=== PATIENT | female | born 1990 | race Caucasian/White ===

== ENCOUNTER → 2016-10-24 | Outpatient (CLI) | payer BC ==
[2016-10-24 13:51] LABS: CH 31.7; HCT 40.1 % (34.0-46.0); HDW 2.07; HGB 12.8 gm/dL (11.4-16.0); MCH 30.7 pg (25.0-35.0); MCHC 31.9 g/dL (31.0-37.0); MCV 96.4 fL (80.0-100.0); Mean Platelet Volume 7.5; RBC 4.16 m/uL (3.80-5.40); RDW 12.9 % (11.5-15.5); WBC 5.9 k/uL (3.8-10.6)
[2016-10-24 14:05] LABS: ALT 33 U/L (9-52); AST 22 U/L (14-36); Alkaline Phosphatase 56 U/L (38-126); Anion Gap 9 mmol/L; Blood Urea Nitrogen 12 mg/dL (7-17); Calcium 9.8 mg/dL (8.4-10.2); Carbon Dioxide 25 mmol/L (22-30); Chloride 103 mmol/L (98-107); Cholesterol 190 mg/dL (<200); Glucose 80 mg/dL (74-99); HDL Cholesterol 103 mg/dL (40-60); Magnesium 1.8 mg/dL (1.6-2.3); Non-African American GFR(MDRD) >60 (>60 ml/min/1.73 sqM); Potassium 4.3 mmol/L (3.5-5.1); Sodium 137 mmol/L (137-145); Total Bilirubin 0.6 mg/dL (0.2-1.3); Total Protein 6.7 g/dL (6.3-8.2)
[2016-10-24 14:22] LABS: Follicle Stimulating Hormone 2.3 mIU/mL
[2016-10-24 14:37] LABS: Estradiol 133 pg/mL
[2016-10-24 15:10] LABS: Vitamin B12 652 pg/mL (239-931)
[2016-10-25 03:23] LABS: EBV - EA (IgG) <5.0 U/mL (<9.0)
== END | disposition home or self-care (01) ==
LOC: LABWHC1 13:00
PROVIDERS: ATTEND Internal Medicine
DX: R53.82 Chronic fatigue, unspecified (principal)
CPT/HCPCS: 36415; 80053; 80061; 82306; 82607; 82670; 82746; 83001; 83002; 83735; 84439; 84443; 84630; 85027; 86663; 86664; 86665

== ENCOUNTER → 2017-03-20 | Outpatient (CLI) | payer BC ==
--- NOTE | 2017-03-20 13:03 | USB ---
Reason for exam: clinical finding. Physical Findings: Nurse Summary:left breast pain, redness, sore (nurse kp). US Breast LT Left breast ultrasound includes all four quadrants, the retroareolar region and axilla. Finding demonstrates a 1.6 x 0.8 x 1.2cm lobular, hypoechoic lesion at 3 o'clock. These results were verbally communicated with the patient and result sheet given to the patient on 03/20/17. ASSESSMENT: Probably benign, BI-RAD 3 RECOMMENDATION: Ultrasound of the left breast in 4-6 weeks time. (1-2 months) Suspect phlegmon/infection as patient recently started antibiotic if lesion does not resolve, further investigated with biopsy would be advised. MTDD
== END | disposition home or self-care (01) ==
LOC: RADUSWWP 10:57
PROVIDERS: ATTEND Family Medicine
DX: N61.0 Mastitis without abscess (principal)

== ENCOUNTER → 2017-04-10 | Outpatient (CLI) | payer BC ==
--- NOTE | 2017-04-10 10:11 | USB ---
Reason for exam: clinical finding. Indicated problem(s): palpable abnormality and lump or thickening in the left breast. Physical Findings: Nurse Summary: A 1cm movable nodule at 2-3 o'clock (nurse dw). US Breast LT Left breast ultrasound includes all four quadrants, the retroareolar region and axilla. Finding demonstrates a 0.7 x 0.7 x 0.3cm irregular, mixed lesion with calcification at 2 o'clock, improved from 03/25/17, and a 0.2 x 0.3 x 0.2cm oval, cystic lesion at 2 o'clock. These results were verbally communicated with the patient and result sheet given to the patient on 04/10/17. ASSESSMENT: Probably benign, BI-RAD 3 RECOMMENDATION: Ultrasound of the left breast in 1 month. (1-2 months).
== END | disposition home or self-care (01) ==
LOC: RADUSWWP 08:23
PROVIDERS: ATTEND Family Medicine
DX: N61.0 Mastitis without abscess (principal)

== ENCOUNTER 2018-07-24 18:18 | Emergency (ER) | payer BC, OTHER ==
[2018-07-24 18:27] VITALS: BP 119/81; PULSE 99; RESP 20; TEMP 98.2
[2018-07-24] MEDS ORDERED: DIPH,PERTUS(ACELL)TETVAC-LF 0.5 ML VIAL IM ONE (18:33)
[2018-07-24] MEDS ORDERED: PROPARACAINE 0.5% OPHTH DROPS 15 ML BTL BOTH EYES STA (18:33)
[2018-07-24] MEDS ORDERED: ERYTHROMYCIN 5 MG/GM OPHTH OINT 3.5 GM TUBE LEFT EYE STA (19:06)
--- NOTE | 2018-07-24 19:09 | ED ---
General Adult HPI - General Chief complaint: Eye Problems Stated complaint: [facility]-Eye Pain Time Seen by Provider: 07/24/18 18:33 Source: patient, RN notes reviewed Mode of arrival: ambulatory Limitations: no limitations - History of Present Illness Initial comments: 27-year-old female presents to the emergency department for a chief complaint of left eye pain. Patient states that approximately 4 hours ago she was blowing up a balloon when it popped and hit her in the left eye. Patient states the pain is since improved her work wanted her to be evaluated. States that it is making her nose running she feels like she scratched it or has something in it. 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 States her vision is pretty much at baseline at this time. Denies pain with movement of the left eye. Patient has no other complaints at this time including shortness of breath, chest pain, abdominal pain, nausea or vomiting, headache, or visual changes. - Related Data Home Medications Medication Instructions Recorded Confirmed No Known Home Medications 03/12/15 03/12/15 Allergies Allergy/AdvReac Type Severity Reaction Status Date / Time No Known Allergies Allergy Verified 07/24/18 18:27 Review of Systems ROS Statement: Those systems with pertinent positive or pertinent negative responses have been documented in the HPI. ROS Other: All systems not noted in ROS Statement are negative. Past Medical History Past Medical History: Fibromyalgia History of Any Multi-Drug Resistant Organisms: None Reported Past Surgical History: No Surgical Hx Reported Past Psychological History: No Psychological Hx Reported Smoking Status: Never smoker Past Alcohol Use History: None Reported Past Drug Use History: None Reported General Exam Limitations: no limitations General appearance: alert, in no apparent distress Head exam: Present: atraumatic, normocephalic, normal inspection Eye exam: Present: PERRL, EOMI, conjunctival injection (Minimal conjunctival injection noted of the left cornea), periorbital swelling (Minimal left-sided periorbital edema of the upper eyelid), other (Eye was stained with fluorescein stain, corneal abrasion evident at about 9:00. This is about 2 mm in length. Negative Jaimie sign.). Absent: scleral icterus ENT exam: Present: normal exam, normal oropharynx, mucous membranes moist, TM's normal bilaterally, normal external ear exam Neck exam: Present: normal inspection, full ROM. Absent: tenderness, meningismus, lymphadenopathy Respiratory exam: Present: normal lung sounds bilaterally. Absent: respiratory distress, wheezes, rales, rhonchi, stridor Cardiovascular Exam: Present: regular rate, normal rhythm, normal heart sounds. Absent: systolic murmur, diastolic murmur, rubs, gallop, clicks Neurological exam: Present: alert, oriented X3, CN II-XII intact Psychiatric exam: Present: normal affect, normal mood Course Vital Signs 07/24/18 18:23 Temperature 98.2 F Pulse Rate 99 Respiratory 20 Rate Blood Pressure 119/81 O2 Sat by Pulse 96 Oximetry Medical Decision Making - Medical Decision Making 27-year-old [place] female presents for left eye pain after blowing up a balloon and popping in her left eye. Patient has minimal periorbital edema of the left upper eyelid with minimal conjunctival erythema. The eye was numbed with proparacaine which completely resolved symptoms. The eye was then stained with fluorescein stain and because with the Wood's lamp. There is a small corneal abrasion noted. Negative Jaimie sign. Both eyelids were flipped, no evidence for foreign bodies. Patient states pain is actually improving since it happened her work wanted her to be evaluated. Patient's vision is at baseline, states she always has poor vision of the left eye due to amblyopia as a child that was uncorrected. Patient will be treated with tetanus shot, erythromycin ointment. Will follow up with primary care. He will return here if she has any worsening symptoms. Disposition Clinical Impression: Corneal abrasion, left Disposition: HOME SELF-CARE Condition: Good Instructions (If sedation given, give patient instructions): Corneal Abrasion (ED) Additional Instructions: Apply antibiotic ointment to left eye 4 times a day for 7 days. Follow-up with primary care in 1-2 days. If anything is worsening return here to the emergency department. Is patient prescribed a controlled substance at d/c from ED?: No Referrals: Andry Garcia MD [Primary Care Provider] - 1-2 days Time of Disposition: 19:08
== END 2018-07-24 19:27 | disposition home or self-care (01) ==
LOC: EC 18:18
DX: S05.02XA Injury of conjunctiva and corneal abrasion without foreign body, left eye, initial encounter (principal); Z23 Encounter for immunization; W22.8XXA Striking against or struck by other objects, initial encounter; Y92.69 Other specified industrial and construction area as the place of occurrence of the external cause; Y99.0 Civilian activity done for income or pay
CPT/HCPCS: 90471; 90715; 99283

== ENCOUNTER 2019-04-12 16:20 | Emergency (ER) | payer BC, OTHER ==
[2019-04-12 16:23] VITALS: TEMP 98.2
[2019-04-12] MEDS ORDERED: SODIUM CHLORIDE 0.9% 1,000 ML IV STA (16:52)
[2019-04-12] MEDS ORDERED: PANTOPRAZOLE 40 MG/10 ML VIAL IVP STA (16:52)
--- NOTE | 2019-04-12 16:56 | ED ---
Abdominal Pain HPI - General Source: patient, RN notes reviewed Mode of arrival: ambulatory Limitations: no limitations <Reji Allison - Last Filed: 04/12/19 16:53> <Mackenzie Ospina - Last Filed: 04/12/19 23:24> - General Chief Complaint: Abdominal Pain Stated Complaint: Abd pain Time Seen by Provider: 04/12/19 16:48 - History of Present Illness Initial Comments: This is a 28-year-old female presents emergency Department chief complaint of abdominal discomfort, generalized does not feel well. She states on she had a mild headache states that she came home took some Tylenol but did not feel well and went to bed. Patient woke up with abdominal pain on Saturday into Saturday. She did have an episode of vomiting throughout the night she was seen at urgent care and was diagnosed with possible UTI. She states that they ran urinalysis and told her that though placed on antibiotics until urine culture came back. Patient states she has some pain epigastric region which is nonradiating. She states she's been able to eat does not change her pain. Patient states that she has a history of anxiety and fibromyalgia no prior abdominal surgeries. She denies any significant constipation, diarrhea, dysuria or hematuria she states that she's had some chills with no reported fever. Patient has no complaints of chest pain or shortness of breath. (Reji Allison) - Related Data Previous Rx's Medication Instructions Recorded Cephalexin [Keflex] 500 mg PO Q12HR 5 Days #10 cap 04/12/19 Famotidine [Pepcid] 20 mg PO DAILY 5 Days #5 tablet 04/12/19 Allergies Allergy/AdvReac Type Severity Reaction Status Date / Time No Known Allergies Allergy Verified 04/12/19 16:23 Review of Systems ROS Other: All systems not noted in ROS Statement are negative. <Reji Allison - Last Filed: 04/12/19 16:53> ROS Other: All systems not noted in ROS Statement are negative. <Mackenzie Ospina - Last Filed: 04/12/19 23:24> ROS Statement: Those systems with pertinent positive or pertinent negative responses have been documented in the HPI. Past Medical History Past Medical History: Fibromyalgia History of Any Multi-Drug Resistant Organisms: None Reported Past Surgical History: No Surgical Hx Reported Past Psychological History: No Psychological Hx Reported Smoking Status: Never smoker Past Alcohol Use History: None Reported Past Drug Use History: None Reported <Reji Allison M - Last Filed: 04/12/19 16:53> General Exam Limitations: no limitations General appearance: alert, in no apparent distress Head exam: Present: atraumatic, normocephalic, normal inspection Eye exam: Present: normal appearance, PERRL, EOMI. Absent: scleral icterus, conjunctival injection, periorbital swelling ENT exam: Present: normal exam, normal oropharynx, mucous membranes moist, TM's normal bilaterally Neck exam: Present: normal inspection, full ROM. Absent: tenderness, meningismus, lymphadenopathy Respiratory exam: Present: normal lung sounds bilaterally. Absent: respiratory distress, wheezes, rales, rhonchi, stridor Cardiovascular Exam: Present: regular rate, normal rhythm, normal heart sounds. Absent: systolic murmur, diastolic murmur, rubs, gallop, clicks GI/Abdominal exam: Present: soft, tenderness (Mild epigastric), normal bowel sounds. Absent: distended, guarding, rebound, rigid Back exam: Absent: CVA tenderness (R), CVA tenderness (L) <Reji Allison M - Last Filed: 04/12/19 16:53> <Mackenzie Ospina L - Last Filed: 04/12/19 23:24> - General Exam Comments Initial Comments: General: The patient is awake and alert, in no distress, and does not appear acutely ill. Eye: +3 mm pupils are equal, round and reactive to light, extra-ocular movements are intact. No nystagmus. There is normal conjunctiva bilaterally. No signs of icterus. Ears, nose, mouth and throat: There are moist mucous membranes and no oral lesions. Neck: The neck is supple, there is no tenderness or JVD. Cardiovascular: There is a regular rate and rhythm. No murmur, rub or gallop is appreciated. Respiratory: Lungs are clear to auscultation, respirations are non-labored, breath sounds are equal. No wheezes, stridor, rales, or rhonchi. Gastrointestinal: Soft, non-distended, very mild epigastric pain to deep palpation fo the region remaining abdomen nontender and without masses or organomegaly noted. NO RUQ pain, (-) murphys sign. There is no rebound or guarding present. No CVA tenderness. Bowel sounds are unremarkable. Musculoskeletal: Normal ROM, no tenderness. Strength 5/5. Sensation intact. radial pulses equal bilaterally 2+. Neurological: A&O x 3. CN II-XII intact grossly, There are no obvious motor or sensory deficits. Coordination appears grossly intact. Speech is normal. Skin: Skin is warm and dry and no rashes or lesions are noted. Psychiatric: Cooperative, appropriate mood & affect, normal judgment. (Mackenzie Ospina) Course Vital Signs 04/12/19 04/12/19 16:20 18:32 Temperature 98.2 F Pulse Rate 80 68 Respiratory 18 16 Rate Blood Pressure 110/77 117/73 O2 Sat by Pulse 98 98 Oximetry Medical Decision Making - Lab Data Result diagrams: 04/12/19 17:23 04/12/19 17:23 <Mackenzie Ospina - Last Filed: 04/12/19 23:24> - Medical Decision Making 28-year-old female presenting today for chief complaint of epigastric pain that episode of vomiting. Patient states that this has been resolving however she still feels fatigued. Patient does have lower abdominal pain denies . Laboratory studies unremarkable. Lipase within normal limits no leukocytosis transaminitis. Patient appears well signs acute distress she is laughing and giggling in room. Patient was provided Protonix by provider Reji Allison prior to sign out. Patient states this gave minor relief. Patient is a habitual NSAID user and I discussed the rest of peptic ulcer. Patient denies any melanotic stools patient's hemoglobin is stable she is not on" therapy at this time feel she is stable for discharge with Pepcid and GI follow-up. Return parameters and laboratory studies were discussed with patient verbalized understanding patient is discharged. Well aware of the importance of follow-up. Discussed case with Dr. Freitas. (Mackenzie Ospina) - Lab Data Lab Results 04/12/19 04/12/19 04/12/19 Range/Units 17:23 17:23 17:23 WBC 3.7 L (3.8-10.6) k/uL RBC 4.15 (3.80-5.40) m/uL Hgb 12.5 (11.4-16.0) gm/dL Hct 38.6 (34.0-46.0) % MCV 93.2 (80.0-100.0) fL MCH 30.2 (25.0-35.0) pg MCHC 32.4 (31.0-37.0) g/dL RDW 12.1 (11.5-15.5) % Plt Count 196 (150-450) k/uL Neutrophils % 56 % Lymphocytes % 27 % Monocytes % 8 % Eosinophils % 4 % Basophils % 2 % Neutrophils # 2.1 (1.3-7.7) k/uL Lymphocytes # 1.0 (1.0-4.8) k/uL Monocytes # 0.3 (0-1.0) k/uL Eosinophils # 0.2 (0-0.7) k/uL Basophils # 0.1 (0-0.2) k/uL Sodium 138 (137-145) mmol/L Potassium 4.2 (3.5-5.1) mmol/L Chloride 106 (98-107) mmol/L Carbon Dioxide 26 (22-30) mmol/L Anion Gap 6 mmol/L BUN 10 (7-17) mg/dL Creatinine 0.67 (0.52-1.04) mg/dL Est GFR (CKD-EPI)AfAm >90 (>60 ml/min/1.73 sqM) Est GFR (CKD-EPI)NonAf >90 (>60 ml/min/1.73 sqM) Glucose 89 (74-99) mg/dL Calcium 8.7 (8.4-10.2) mg/dL Total Bilirubin 0.3 (0.2-1.3) mg/dL AST 22 (14-36) U/L ALT 14 (4-34) U/L Alkaline Phosphatase 58 (38-126) U/L Total Protein 6.5 (6.3-8.2) g/dL Albumin 4.0 (3.5-5.0) g/dL Amylase 36 (30-110) U/L Lipase 100 (23-300) U/L Urine Color Urine Appearance (Clear) Urine pH (5.0-8.0) Ur Specific [place] (1.001-1.035) Urine Protein (Negative) Urine Glucose (UA) (Negative) Urine Ketones (Negative) Urine Blood (Negative) Urine Nitrite (Negative) Urine Bilirubin (Negative) Urine Urobilinogen (<2.0) mg/dL Ur Leukocyte Esterase (Negative) Urine RBC (0-5) /hpf Urine WBC (0-5) /hpf Ur Squamous Epith Cells (0-4) /hpf Urine Bacteria (None) /hpf Urine HCG, Qual (Not Detectd) Heterophile Antibody Negative (Negative) 04/12/19 04/12/19 Range/Units 17:31 17:31 WBC (3.8-10.6) k/uL RBC (3.80-5.40) m/uL Hgb (11.4-16.0) gm/dL Hct (34.0-46.0) % MCV (80.0-100.0) fL MCH (25.0-35.0) pg MCHC (31.0-37.0) g/dL RDW (11.5-15.5) % Plt Count (150-450) k/uL Neutrophils % % Lymphocytes % % Monocytes % % Eosinophils % % Basophils % % Neutrophils # (1.3-7.7) k/uL Lymphocytes # (1.0-4.8) k/uL Monocytes # (0-1.0) k/uL Eosinophils # (0-0.7) k/uL Basophils # (0-0.2) k/uL Sodium (137-145) mmol/L Potassium (3.5-5.1) mmol/L Chloride (98-107) mmol/L Carbon Dioxide (22-30) mmol/L Anion Gap mmol/L BUN (7-17) mg/dL Creatinine (0.52-1.04) mg/dL Est GFR (CKD-EPI)AfAm (>60 ml/min/1.73 sqM) Est GFR (CKD-EPI)NonAf (>60 ml/min/1.73 sqM) Glucose (74-99) mg/dL Calcium (8.4-10.2) mg/dL Total Bilirubin (0.2-1.3) mg/dL AST (14-36) U/L ALT (4-34) U/L Alkaline Phosphatase (38-126) U/L Total Protein (6.3-8.2) g/dL Albumin (3.5-5.0) g/dL Amylase (30-110) U/L Lipase (23-300) U/L Urine Color Light Yellow Urine Appearance Clear (Clear) Urine pH 6.0 (5.0-8.0) Ur Specific [place] 1.006 (1.001-1.035) Urine Protein Negative (Negative) Urine Glucose (UA) Negative (Negative) Urine Ketones Negative (Negative) Urine Blood Trace H (Negative) Urine Nitrite Negative (Negative) Urine Bilirubin Negative (Negative) Urine Urobilinogen <2.0 (<2.0) mg/dL Ur Leukocyte Esterase Large H (Negative) Urine RBC 3 (0-5) /hpf Urine WBC 10 H (0-5) /hpf Ur Squamous Epith Cells 3 (0-4) /hpf Urine Bacteria Occasional H (None) /hpf Urine HCG, Qual Not Detected (Not Detectd) Heterophile Antibody (Negative) Disposition <Reji Allison - Last Filed: 04/12/19 16:53> Is patient prescribed a controlled substance at d/c from ED?: No Time of Disposition: 18:23 <Mackenzie Ospina - Last Filed: 04/12/19 23:24> Clinical Impression: UTI (urinary tract infection), Epigastric pain, Vomiting Disposition: HOME SELF-CARE Condition: Good Instructions (If sedation given, give patient instructions): Peptic Ulcer (ED), Acute Abdominal Pain (ED) Additional Instructions: Please use medication as discussed. Please follow-up with family doctor in the next 2 days, and GI as discussed. Please return to emergency room if the symptoms increase or worsen or for any other concerns. Prescriptions: Cephalexin [Keflex] 500 mg PO Q12HR 5 Days #10 cap Famotidine [Pepcid] 20 mg PO DAILY 5 Days #5 tablet Referrals: Andry Garcia MD [Primary Care Provider] - 1-2 days Corey Carballo MD [STAFF PHYSICIAN] - 1-2 days
[2019-04-12 17:32] LABS: Basophils # (A) 0.1 k/uL (0-0.2); Basophils % (A) 2 %; Eosinophils # (A) 0.2 k/uL (0-0.7); Eosinophils % (A) 4 %; HCT 38.6 % (34.0-46.0); HGB 12.5 gm/dL (11.4-16.0); Lymphocytes % (A) 27 %; MCH 30.2 pg (25.0-35.0); MCHC 32.4 g/dL (31.0-37.0); MCV 93.2 fL (80.0-100.0); Mean Platelet Volume 7.2; Monocytes # (A) 0.3 k/uL (0-1.0); Monocytes % (A) 8 %; Neutrophils # (A) 2.1 k/uL (1.3-7.7); Neutrophils % (A) 56 %; Platelet Count 196 k/uL (150-450); RBC 4.15 m/uL (3.80-5.40); RDW 12.1 % (11.5-15.5); WBC 3.7 k/uL (3.8-10.6)
[2019-04-12 17:47] LABS: ALT 14 U/L (4-34); AST 22 U/L (14-36); African American GFR (CKD) >90 (>60 ml/min/1.73 sqM); Alkaline Phosphatase 58 U/L (38-126); Amylase 36 U/L (30-110); Anion Gap 6 mmol/L; Blood Urea Nitrogen 10 mg/dL (7-17); Calcium 8.7 mg/dL (8.4-10.2); Carbon Dioxide 26 mmol/L (22-30); Chloride 106 mmol/L (98-107); Glucose 89 mg/dL (74-99); Non-African American GFR(CKD) >90 (>60 ml/min/1.73 sqM); Potassium 4.2 mmol/L (3.5-5.1); Sodium 138 mmol/L (137-145); Total Bilirubin 0.3 mg/dL (0.2-1.3); Total Protein 6.5 g/dL (6.3-8.2)
[2019-04-12 17:57] LABS: Appearance,Urine Clear (Clear); Bacteria,Urine Occasional /hpf; Bilirubin,Urine Negative (Negative); Blood,Urine Trace (Negative); Color,Urine Light Yellow; Glucose,Urine (UA) Negative (Negative); Ketones,Urine Negative (Negative); Leukocyte Esterase,Urine Large (Negative); Nitrite,Urine Negative (Negative); Protein,Urine Negative (Negative); RBC,Urine 3 /hpf (0-5); Specific Gravity,Urine 1.006 (1.001-1.035); Squamous Epithelial Cell,Urine 3 /hpf (0-4); Urobilinogen,Urine <2.0 mg/dL (<2.0); WBC,Urine 10 /hpf (0-5)
[2019-04-12] MEDS ORDERED: CEPHALEXIN 500MG STARTER PACK 4 CAP BTL PO STA (18:21)
[2019-04-12 18:40] VITALS: BP 117/73; PULSE 68; RESP 16
== END 2019-04-12 18:32 | disposition home or self-care (01) ==
LOC: EC 16:20
DX: N39.0 Urinary tract infection, site not specified (principal)
CPT/HCPCS: 36415; 80053; 82150; 83690; 85025; 86308; 81001; 81025; 99284; 96374; 96361; C9113

== ENCOUNTER → 2020-01-26 | Outpatient (CLI) | payer BC ==
[2020-01-26 16:30] LABS: Basophils % (A) 1 %; Eosinophils # (A) 0.1 k/uL (0-0.7); Eosinophils % (A) 2 %; HCT 39.8 % (34.0-46.0); HGB 13.1 gm/dL (11.4-16.0); Lymphocytes # (A) 1.5 k/uL (1.0-4.8); Lymphocytes % (A) 28 %; MCH 30.3 pg (25.0-35.0); Mean Platelet Volume 6.9; Monocytes # (A) 0.3 k/uL (0-1.0); Monocytes % (A) 6 %; Neutrophils # (A) 3.2 k/uL (1.3-7.7); Neutrophils % (A) 62 %; Platelet Count 173 k/uL (150-450); RBC 4.32 m/uL (3.80-5.40); RDW 12.4 % (11.5-15.5); WBC 5.2 k/uL (3.8-10.6)
[2020-01-27 01:39] LABS: Hemoglobin A1C 5.4 % (4.0-6.0)
[2020-01-27 03:05] LABS: T4, Free (Free Thyroxine) 0.9 ng/dL (0.80-1.80)
[2020-01-27 03:30] LABS: African American GFR (CKD) 100.1 (60.0-200.0); Albumin 4.7 g/dL (3.80-4.90); Albumin/Globulin Ratio 2.24 (1.60-3.17); BUN/Creat Ratio 14.44 Ratio (12.00-20.00); Calcium 9.7 mg/dL (8.7-10.3); Globulin 2.1 g/dL (1.6-3.3); Non-African American GFR(CKD) 86.4 (60.0-200.0); Potassium 4.2 mmol/L (3.5-5.5); Total Bilirubin 0.6 mg/dL (0.3-1.2); Total Protein 6.8 g/dL (6.2-8.2)
== END | disposition home or self-care (01) ==
LOC: LABWHC1 15:08
PROVIDERS: ATTEND Psychiatry & Neurology Psychiatry
DX: Z00.00 Encounter for general adult medical examination without abnormal findings (principal); F42.9 Obsessive-compulsive disorder, unspecified
CPT/HCPCS: 36415; 80053; 83036; 84439; 84443; 85025

== ENCOUNTER → 2020-01-27 | Outpatient (CLI) | payer BC ==
[2020-01-27 20:42] LABS: Chol/HDL Ratio 2.99; LDL Cholesterol,Calculated 146.6 mg/dL (0.0-131.0); VLDL Calculation 20.4 mg/dL (5.00-40.00)
== END | disposition home or self-care (01) ==
LOC: LABWHC1 11:12
PROVIDERS: ATTEND Family Medicine
DX: Z00.00 Encounter for general adult medical examination without abnormal findings (principal)
CPT/HCPCS: 36415; 80061

== ENCOUNTER 2020-04-22 15:01 | Emergency (ER) | payer BC, OTHER ==
[2020-04-22 15:05] VITALS: BP 143/88; PULSE 79; RESP 18; TEMP 98.1
[2020-04-22] MEDS ORDERED: SODIUM CHLORIDE 0.9% 1,000 ML IV STA (15:17)
--- NOTE | 2020-04-22 15:46 | ED ---
Abdominal Pain HPI - General Chief Complaint: Abdominal Pain Stated Complaint: Abd Pain Time Seen by Provider: 04/22/20 15:08 Source: patient Mode of arrival: ambulatory Limitations: no limitations - History of Present Illness Initial Comments: 29-year-old female presents emergency Department with chief complaint abdominal pain and constipation. Patient reports she is on multiple psychiatric medications. He states 2 months ago she was started on an antidepressant that causes constipation as a side effect. Patient reports she stopped taking the me dication after one month but now is starting to feel constipated. Patient reports she was switched to fluoxetine and is trying to gain weight but she believes this is secondary to not having bowel movements. Patient reports having 1 bowel movement weekly. Patient reports abdominal bloating and in digestion. Reports upper abdominal discomfort with occasional nausea but no vomiting or diarrhea. Denies any chest pain or shortness of breath. Denies any urinary or vaginal symptoms. she reports taking MiraLAX for 2 weeks with no significant improvement in symptoms. - Related Data Home Medications Medication Instructions Recorded Confirmed Acetaminophen Tab [Tylenol Tab] 1,000 mg PO Q6HR PRN 04/22/20 04/22/20 Blisovi 1 tab PO DAILY 04/22/20 04/22/20 Multivitamins, Thera [Multivitamin 1 tab PO DAILY 04/22/20 04/22/20 (formulary)] clonazePAM 0.5 mg PO TID 04/22/20 04/22/20 fluvoxaMINE MALEATE [Fluvoxamine 100 mg PO BID 04/22/20 04/22/20 Maleate] hydrOXYzine HCL [Atarax] 12.5 mg PO HS 04/22/20 04/22/20 Allergies Allergy/AdvReac Type Severity Reaction Status Date / Time No Known Allergies Allergy Verified 04/22/20 16:38 Review of Systems ROS Statement: Those systems with pertinent positive or pertinent negative responses have been documented in the HPI. ROS Other: All systems not noted in ROS Statement are negative. Past Medical History Past Medical History: Fibromyalgia History of Any Multi-Drug Resistant Organisms: None Reported Past Surgical History: No Surgical Hx Reported Past Psychological History: No Psychological Hx Reported Smoking Status: Never smoker Past Alcohol Use History: None Reported Past Drug Use History: None Reported General Exam Limitations: no limitations General appearance: alert, in no apparent distress Head exam: Present: atraumatic, normocephalic, normal inspection Eye exam: Present: normal appearance, PERRL, EOMI Pupils: Present: normal accommodation ENT exam: Present: normal exam, normal oropharynx, mucous membranes moist Neck exam: Present: normal inspection, full ROM. Absent: tenderness Respiratory exam: Present: normal lung sounds bilaterally. Absent: respiratory distress Cardiovascular Exam: Present: regular rate, normal rhythm, normal heart sounds GI/Abdominal exam: Present: soft, tenderness (mild upper abdominal tenderness). Absent: distended Extremities exam: Present: normal inspection, full ROM, normal capillary refill, other (palpable DP and PT bilaterally.). Absent: tenderness, pedal edema, joint swelling, calf tenderness Back exam: Present: normal inspection, full ROM. Absent: tenderness, CVA tenderness (R), CVA tenderness (L) Neurological exam: Present: alert, oriented X3, normal gait Psychiatric exam: Present: normal affect, normal mood Skin exam: Present: warm, dry, intact, normal color Course Vital Signs 04/22/20 15:02 Temperature 98.1 F Pulse Rate 79 Respiratory 18 Rate Blood Pressure 143/88 O2 Sat by Pulse 99 Oximetry Medical Decision Making - Medical Decision Making 29-year-old female presents to emergency Department with a chief complaint of abdominal pain and constipation. on physical examination, patient is resting comfortably in bed. She appears to have mild upper abdominal tenderness. Non specific.I did suspect a recent weight gain is related to a newSSRI she has been taking. This is a common side effect of no medication.CBC CMP and UA unremarkable. Patient is not . KUB reveals no signs of bowel obstruction or possible ileus. Overall nonobstructive bowel pattern. I will discharge the patient with a laxative. She was advised to follow with the primary care physician. Return parameters were thoroughly discussed the patient was understanding and agreeable. Case discussed with physician. - Lab Data Result diagrams: 04/22/20 15:37 04/22/20 15:37 Lab Results 04/22/20 04/22/20 04/22/20 Range/Units 15:37 15:37 15:37 WBC 5.3 (3.8-10.6) k/uL RBC 4.32 (3.80-5.40) m/uL Hgb 13.5 (11.4-16.0) gm/dL Hct 39.8 (34.0-46.0) % MCV 92.0 (80.0-100.0) fL MCH 31.2 (25.0-35.0) pg MCHC 33.9 (31.0-37.0) g/dL RDW 12.6 (11.5-15.5) % Plt Count 242 (150-450) k/uL MPV 6.7 Neutrophils % 56 % Lymphocytes % 34 % Monocytes % 5 % Eosinophils % 4 % Basophils % 1 % Neutrophils # 3.0 (1.3-7.7) k/uL Lymphocytes # 1.8 (1.0-4.8) k/uL Monocytes # 0.3 (0-1.0) k/uL Eosinophils # 0.2 (0-0.7) k/uL Basophils # 0.0 (0-0.2) k/uL Sodium (137-145) mmol/L Potassium (3.5-5.1) mmol/L Chloride (98-107) mmol/L Carbon Dioxide (22-30) mmol/L Anion Gap mmol/L BUN (7-17) mg/dL Creatinine (0.52-1.04) mg/dL Est GFR (CKD-EPI)AfAm (>60 ml/min/1.73 sqM) Est GFR (CKD-EPI)NonAf (>60 ml/min/1.73 sqM) Glucose (74-99) mg/dL Calcium (8.4-10.2) mg/dL Total Bilirubin (0.2-1.3) mg/dL AST (14-36) U/L ALT (4-34) U/L Alkaline Phosphatase (38-126) U/L Total Protein (6.3-8.2) g/dL Albumin (3.5-5.0) g/dL Lipase (23-300) U/L Urine Color Light Yellow Urine Appearance Clear (Clear) Urine pH 5.5 (5.0-8.0) Ur Specific [place] 1.012 (1.001-1.035) Urine Protein Negative (Negative) Urine Glucose (UA) Negative (Negative) Urine Ketones Negative (Negative) Urine Blood Negative (Negative) Urine Nitrite Negative (Negative) Urine Bilirubin Negative (Negative) Urine Urobilinogen <2.0 (<2.0) mg/dL Ur Leukocyte Esterase Small H (Negative) Urine RBC 1 (0-5) /hpf Urine WBC 1 (0-5) /hpf Ur Squamous Epith Cells 1 (0-4) /hpf Urine Bacteria Rare H (None) /hpf Urine Mucus Rare H (None) /hpf Urine HCG, Qual Not Detected (Not Detectd) 04/22/20 Range/Units 15:37 WBC (3.8-10.6) k/uL RBC (3.80-5.40) m/uL Hgb (11.4-16.0) gm/dL Hct (34.0-46.0) % MCV (80.0-100.0) fL MCH (25.0-35.0) pg MCHC (31.0-37.0) g/dL RDW (11.5-15.5) % Plt Count (150-450) k/uL MPV Neutrophils % % Lymphocytes % % Monocytes % % Eosinophils % % Basophils % % Neutrophils # (1.3-7.7) k/uL Lymphocytes # (1.0-4.8) k/uL Monocytes # (0-1.0) k/uL Eosinophils # (0-0.7) k/uL Basophils # (0-0.2) k/uL Sodium 136 L (137-145) mmol/L Potassium 4.3 (3.5-5.1) mmol/L Chloride 102 (98-107) mmol/L Carbon Dioxide 26 (22-30) mmol/L Anion Gap 8 mmol/L BUN 8 (7-17) mg/dL Creatinine 0.67 (0.52-1.04) mg/dL Est GFR (CKD-EPI)AfAm >90 (>60 ml/min/1.73 sqM) Est GFR (CKD-EPI)NonAf >90 (>60 ml/min/1.73 sqM) Glucose 98 (74-99) mg/dL Calcium 9.8 (8.4-10.2) mg/dL Total Bilirubin 0.4 (0.2-1.3) mg/dL AST 25 (14-36) U/L ALT 20 (4-34) U/L Alkaline Phosphatase 71 (38-126) U/L Total Protein 7.6 (6.3-8.2) g/dL Albumin 4.7 (3.5-5.0) g/dL Lipase 109 (23-300) U/L Urine Color Urine Appearance (Clear) Urine pH (5.0-8.0) Ur Specific [place] (1.001-1.035) Urine Protein (Negative) Urine Glucose (UA) (Negative) Urine Ketones (Negative) Urine Blood (Negative) Urine Nitrite (Negative) Urine Bilirubin (Negative) Urine Urobilinogen (<2.0) mg/dL Ur Leukocyte Esterase (Negative) Urine RBC (0-5) /hpf Urine WBC (0-5) /hpf Ur Squamous Epith Cells (0-4) /hpf Urine Bacteria (None) /hpf Urine Mucus (None) /hpf Urine HCG, Qual (Not Detectd) Disposition Clinical Impression: Constipation Disposition: HOME SELF-CARE Condition: Stable Instructions (If sedation given, give patient instructions): Constipation (DC), High Fiber Diet (ED) Additional Instructions: take prescribed medication as directed. follow-up high-fiber diet. Follow with the primary care physician. Return to emergency department if symptoms worsen. Is patient prescribed a controlled substance at d/c from ED?: No Referrals: Andry Garcia MD [Primary Care Provider] - 1-2 days Time of Disposition: 17:13
[2020-04-22 15:47] LABS: Basophils % (A) 1 %; Eosinophils # (A) 0.2 k/uL (0-0.7); Eosinophils % (A) 4 %; HCT 39.8 % (34.0-46.0); HGB 13.5 gm/dL (11.4-16.0); Lymphocytes # (A) 1.8 k/uL (1.0-4.8); Lymphocytes % (A) 34 %; MCH 31.2 pg (25.0-35.0); MCHC 33.9 g/dL (31.0-37.0); Mean Platelet Volume 6.7; Monocytes # (A) 0.3 k/uL (0-1.0); Monocytes % (A) 5 %; Neutrophils % (A) 56 %; Platelet Count 242 k/uL (150-450); RBC 4.32 m/uL (3.80-5.40); RDW 12.6 % (11.5-15.5); WBC 5.3 k/uL (3.8-10.6)
[2020-04-22 15:55] LABS: ALT 20 U/L (4-34); AST 25 U/L (14-36); African American GFR (CKD) >90 (>60 ml/min/1.73 sqM); Albumin 4.7 g/dL (3.5-5.0); Alkaline Phosphatase 71 U/L (38-126); Anion Gap 8 mmol/L; Blood Urea Nitrogen 8 mg/dL (7-17); Calcium 9.8 mg/dL (8.4-10.2); Carbon Dioxide 26 mmol/L (22-30); Chloride 102 mmol/L (98-107); Glucose 98 mg/dL (74-99); Lipase 109 U/L (23-300); Non-African American GFR(CKD) >90 (>60 ml/min/1.73 sqM); Sodium 136 mmol/L (137-145); Total Bilirubin 0.4 mg/dL (0.2-1.3); Total Protein 7.6 g/dL (6.3-8.2)
[2020-04-22 16:03] LABS: Appearance,Urine Clear (Clear); Bacteria,Urine Rare /hpf; Bilirubin,Urine Negative (Negative); Blood,Urine Negative (Negative); Color,Urine Light Yellow; Glucose,Urine (UA) Negative (Negative); Ketones,Urine Negative (Negative); Leukocyte Esterase,Urine Small (Negative); Mucus,Urine Rare /hpf; Nitrite,Urine Negative (Negative); PH, Urine 5.5 (5.0-8.0); Protein,Urine Negative (Negative); RBC,Urine 1 /hpf (0-5); Specific Gravity,Urine 1.012 (1.001-1.035); Squamous Epithelial Cell,Urine 1 /hpf (0-4); Urobilinogen,Urine <2.0 mg/dL (<2.0); WBC,Urine 1 /hpf (0-5)
[2020-04-22 16:32] LABS: Potassium 4.3 mmol/L (3.5-5.1)
--- NOTE | 2020-04-22 16:34 | XR ---
EXAMINATION TYPE: XR KUB DATE OF EXAM: 04/22/2020 4:30 PM CLINICAL HISTORY: Abdominal pain with constipation for one month. TECHNIQUE: Two Upright KUB images of the abdomen are obtained. COMPARISON: None. FINDINGS: Scattered gas is seen in non-distended small bowel loops. Gas and fecal material is seen in non-distended colon. There is no visceromegaly, pneumoperitoneum, or abnormal calcification apprecia digna. The lung bases are clear. Levoconvex scoliosis centered at L2-L3 level. IMPRESSION: Overall nonobstructive bowel gas pattern.
[2020-04-22] MEDS ORDERED: MAGNESIUM CITRATE 296 ML BOTTLE PO ONE (17:13)
== END 2020-04-22 17:29 | disposition home or self-care (01) ==
LOC: EC 15:01
DX: K59.00 Constipation, unspecified (principal); Z79.899 Other long term (current) drug therapy
CPT/HCPCS: 36415; 74018; 80053; 81001; 81025; 83690; 85025; 96360; 99284

== ENCOUNTER → 2020-05-02 | Outpatient (CLI) | payer OTHER ==
--- NOTE | 2020-05-02 08:47 | US ---
EXAMINATION TYPE: US abdomen complete DATE OF EXAM: 05/02/2020 COMPARISON: NONE CLINICAL HISTORY: 29-year-old female R11.0 nausea and bloating TECHNIQUE: Multiple sonographic images of the abdomen are obtained. FINDINGS: EXAM MEASUREMENTS: Liver Length: 12.9 cm Gallbladder Wall: .2 cm CBD: .3 cm Spleen: 9.1 cm Right Kidney: 9.6 x 3.4 x 5.6 cm Left Kidney: 9.3 x 4.5 x 3.6 cm Pancreas: Tail obscured by overlying bowel gas. Visualized portions show no gross abnormality. Liver: wnl Gallbladder: wnl Evidence for sonographic Garcia's sign: No CBD: wnl Spleen: wnl Right Kidney: No hydronephrosis. Left Kidney: Limited due to bowel gas. No evident hydronephrosis. Upper IVC: wnl Abd Aorta: wnl IMPRESSION: Limited visualization of portions of the pancreas and left kidney. Otherwise, unremarkable sonographi c examination of the abdomen.
== END | disposition home or self-care (01) ==
LOC: RADUSWWP 07:42
PROVIDERS: ATTEND Family Medicine
DX: R11.0 Nausea (principal)
CPT/HCPCS: 76700

== ENCOUNTER 2020-09-07 | Emergency (ER) | payer OTHER | END 2020-09-07 19:26 | disposition home or self-care (01) | DX: R11.2 Nausea with vomiting, unspecified (principal) | CPT/HCPCS: 36415; 80053; 85025; 81001; 81025; 99284; 96374; 96375; 96361; J2405; C9113 ==

== ENCOUNTER → 2020-09-22 | Outpatient (CLI) | payer OTHER ==
--- NOTE | 2020-09-22 14:06 | US ---
EXAMINATION TYPE: US abdomen complete DATE OF EXAM: 09/22/2020 COMPARISON: 05/02/2020 CLINICAL HISTORY: R11.2 NAUSEA AND VOMITING. N/V per patient EXAM MEASUREMENTS: Liver Length: 14.6 cm Gallbladder Wall: 0.2 cm CBD: 0.4 cm Spleen: 9.7 cm Right Kidney: 11.1 x 4.8 x 3.5 cm Left Kidney: 9.6 x 4.4 x 4.8 cm Pancreas: wnl Liver: wnl Gallbladder: wnl Evidence for sonographic Garcia's sign: neg CBD: wnl Spleen: wnl Right Kidney: No hydronephrosis or masses seen Left Kidney: No hydronephrosis or masses seen Upper IVC: wnl Abd Aorta: No AAA visualized The liver parenchyma is homogenous. No discrete hepatic mass or intrahepatic biliary dilatation. No e vidence of abdominal aortic aneurysm. The pancreas is grossly unremarkable. No renal calculi or hydro nephrosis. No gallstones, sludge, pericholecystic fluid. Gallbladder wall is within normal limits. Co mmon duct is within normal limits. The spleen is normal in caliber. IMPRESSION: 1. Unremarkable sonographic study of the abdomen.
== END | disposition home or self-care (01) ==
LOC: RADUSWWP 07:40
PROVIDERS: ATTEND Internal Medicine
DX: R11.2 Nausea with vomiting, unspecified (principal)
CPT/HCPCS: 76700

== ENCOUNTER → 2020-12-30 | Outpatient (CLI) | payer OTHER ==
--- NOTE | 2020-12-30 12:22 | US ---
EXAMINATION TYPE: US pelvis complete transvag DATE OF EXAM: 12/30/2020 COMPARISON: NONE CLINICAL HISTORY: N94.10 Dyspareunia, N92.6 Irregular menses. TECHNIQUE: Transvaginal (TV) and Transabdominal (TA) . Transabdominal sonographic images of the pel vis were acquired. Transvaginal sonographic images were medically necessary to better assess the fol lowing anatomy: OVARIES Date of LMP: 12/05/2020 EXAM MEASUREMENTS: Uterus: 7.5 x 2.8 x 4.1 cm Endometrial Stripe: 0.8 cm Right Ovary: 2.9 x 1.9 x 2.3 cm Left Ovary: 2.0 x 1.7 x 1.5 cm 1. Uterus: Anteverted wnl 2. Endometrium: wnl 3. Right Ovary: wnl 4. Left Ovary: wnl 5. Bilateral Adnexa: wnl 6. Posterior cul-de-sac: no free fluid Unremarkable study. IMPRESSION: No suspicious findings are seen.
== END | disposition home or self-care (01) ==
LOC: RADUSWWP 11:21
PROVIDERS: ATTEND Obstetrics & Gynecology
DX: N94.10 Unspecified dyspareunia (principal)
CPT/HCPCS: 76830; 76856

== ENCOUNTER → 2021-03-07 | Outpatient (CLI) | payer OTHER ==
[2021-03-07 14:45] LABS: Basophils # (A) 0.05 X 10*3/uL (0.00-0.10); Basophils % (A) 0.7 %; Eosinophils # (A) 0.22 X 10*3/uL (0.04-0.35); HCT 39.9 % (37.2-46.3); HGB 12.6 g/dL (12.0-15.0); Lymphocytes # (A) 2.02 X 10*3/uL (0.90-5.00); Lymphocytes % (A) 27.7 %; MCH 29.9 pg (27.0-32.0); MCHC 31.6 g/dL (32.0-37.0); MCV 94.5 fL (80.0-97.0); Mean Platelet Volume 9.6 fL (9.5-12.2); Monocytes # (A) 0.57 X 10*3/uL (0.20-1.00); Monocytes % (A) 7.8 %; Neutrophils # (A) 4.35 X 10*3/uL (1.80-7.70); Neutrophils % (A) 59.8 %; Platelet Count 302 X 10*3/uL (140-440); RBC 4.22 X 10*6/uL (4.10-5.20); RDW 11.9 % (11.5-14.5); WBC 7.28 X 10*3/uL (4.50-10.00)
[2021-03-07 16:31] LABS: ALT 9 U/L (8-44); AST 17 U/L (13-35); African American GFR (CKD) 119.2 (60.0-200.0); Albumin 4.5 g/dL (3.8-4.9); Albumin/Globulin Ratio 1.89 (1.60-3.17); Alkaline Phosphatase 115 U/L (41-126); BUN/Creat Ratio 15.74 Ratio (12.00-20.00); Blood Urea Nitrogen 12.2 mg/dL (9.0-27.0); Calcium 9.5 mg/dL (8.7-10.3); Carbon Dioxide 24.4 mmol/L (20.0-27.5); Chloride 103 mmol/L (96-109); Globulin 2.4 g/dL (1.6-3.3); Glucose 90 mg/dL (70-110); LDL Cholesterol,Calculated 116.8 mg/dL (0.0-131.0); Non-African American GFR(CKD) 102.8 (60.0-200.0); Potassium 4.6 mmol/L (3.5-5.5); Sodium 140 mmol/L (135-145); Total Protein 6.9 g/dL (6.2-8.2)
== END | disposition home or self-care (01) ==
LOC: LABWHC1 10:42
PROVIDERS: ATTEND Internal Medicine
DX: F42.9 Obsessive-compulsive disorder, unspecified (principal)
CPT/HCPCS: 36415; 80053; 80061; 84443; 85025

== ENCOUNTER → 2021-09-06 | Outpatient (CLI) | payer OTHER ==
--- NOTE | 2021-09-06 14:29 | XR ---
EXAMINATION TYPE: XR ankle complete LT DATE OF EXAM: 09/06/2021 COMPARISON: NONE HISTORY: Pain TECHNIQUE: 3 views of the left ankle are submitted for evaluation. FINDINGS: There is no evidence for fracture or dislocation. Ankle mortise is intact. Soft tissues are within normal limits. IMPRESSION: 1. No evidence for acute fracture.
--- NOTE | 2021-09-06 14:34 | XR ---
EXAMINATION TYPE: XR foot complete LT DATE OF EXAM: 09/06/2021 CLINICAL HISTORY: pain TECHNIQUE: Frontal, lateral and oblique images of the left foot are obtained. COMPARISON: None. FINDINGS: There is no acute fracture/dislocation evident. The joint spaces appear within normal taylor its. The overlying soft tissue appears unremarkable. IMPRESSION: There is no acute fracture or dislocation. ICD 10 NO FRACTURE, INITIAL EVALUATION
[2021-09-06 18:08] LABS: Basophils # (A) 0.05 X 10*3/uL (0.00-0.10); Basophils % (A) 0.6 %; Eosinophils # (A) 0.16 X 10*3/uL (0.04-0.35); HCT 41.5 % (37.2-46.3); HGB 13.2 g/dL (12.0-15.0); Immature Grans, Automated 0.4 %; Lymphocytes # (A) 2.11 X 10*3/uL (0.90-5.00); Lymphocytes % (A) 26.9 %; MCH 29.2 pg (27.0-32.0); MCHC 31.8 g/dL (32.0-37.0); MCV 91.8 fL (80.0-97.0); Mean Platelet Volume 9.9 fL (9.5-12.2); Monocytes # (A) 0.52 X 10*3/uL (0.20-1.00); Monocytes % (A) 6.6 %; NRBC Per 100 WBC 0 /100 WBCS (0.0-0.0); Neutrophils # (A) 4.97 X 10*3/uL (1.80-7.70); Neutrophils % (A) 63.5 %; Platelet Count 314 X 10*3/uL (140-440); RBC 4.52 X 10*6/uL (4.10-5.20); RDW 12.7 % (11.5-14.5); WBC 7.84 X 10*3/uL (4.50-10.00)
[2021-09-06 18:27] LABS: ALT 12 U/L (8-44); AST 13 U/L (13-35); African American GFR (CKD) 132.4 (60.0-200.0); Albumin 4.6 g/dL (3.8-4.9); Albumin/Globulin Ratio 1.99 (1.60-3.17); Alkaline Phosphatase 126 U/L (41-126); BUN/Creat Ratio 14.87 Ratio (12.00-20.00); Blood Urea Nitrogen 10.5 mg/dL (9.0-27.0); Calcium 9.6 mg/dL (8.7-10.3); Carbon Dioxide 20.9 mmol/L (20.0-27.5); Chloride 103 mmol/L (96-109); Chol/HDL Ratio 3.55 Ratio; Globulin 2.3 g/dL (1.6-3.3); Glucose 109 mg/dL (70-110); LDL Cholesterol,Calculated 137.7 mg/dL (0.0-131.0); Non-African American GFR(CKD) 114.3 (60.0-200.0); Potassium 4.4 mmol/L (3.5-5.5); Sodium 137 mmol/L (135-145); Total Protein 6.9 g/dL (6.2-8.2)
== END | disposition home or self-care (01) ==
LOC: LABWHC1 13:49
PROVIDERS: ATTEND Internal Medicine
DX: F42.9 Obsessive-compulsive disorder, unspecified (principal); M25.572 Pain in left ankle and joints of left foot
CPT/HCPCS: 36415; 80053; 80061; 84443; 85025

== ENCOUNTER 2023-04-19 11:54 | Outpatient (CLI) | payer OTHER ==
[2023-04-19 13:40] VITALS: BP 122/88; PULSE 96; RESP 14; TEMP 95.7
== END 2023-04-19 13:16 | disposition home or self-care (01) ==
LOC: FBPOP 11:54
PROVIDERS: ATTEND Obstetrics & Gynecology
DX: O24.415 Gestational diabetes mellitus in pregnancy, controlled by oral hypoglycemic drugs (principal); Z3A.37 37 weeks gestation of pregnancy
CPT/HCPCS: 59025; 99213

== ENCOUNTER 2023-05-01 13:49 | Inpatient (IN) | payer OTHER ==
[2023-05-01] MEDS ORDERED: miSOPROStoL 200 MCG TAB PO PRN (15:03)
[2023-05-01] MEDS ORDERED: OXYTOCIN 10 UNIT/ML 1 ML VIAL IM PRN (15:03)
[2023-05-01] MEDS ORDERED: METHYLERGONOVINE 0.2 MG/ML 1 ML AMP IM PRN (15:03)
[2023-05-01] MEDS ORDERED: TRANEXAMIC 1,000 MG/100ML-NACL 1,000 MG in EMPTY BAG 1 BAG IV PRN (15:03)
[2023-05-01] MEDS ORDERED: CARBOPROST TROMETHAMINE 250 MCG/ML 1 ML AMP IM PRN (15:03)
[2023-05-01 15:21] LABS: Basophils % (A) 1 %; Eosinophils # (A) 0.1 k/uL (0-0.7); Eosinophils % (A) 1 %; HCT 41.6 % (34.0-46.0); HGB 14.5 gm/dL (11.4-16.0); Lymphocytes # (A) 1.7 k/uL (1.0-4.8); Lymphocytes % (A) 19 %; MCH 32.9 pg (25.0-35.0); MCHC 34.8 g/dL (31.0-37.0); MCV 94.6 fL (80.0-100.0); Mean Platelet Volume 10.7; Monocytes # (A) 0.4 k/uL (0-1.0); Monocytes % (A) 4 %; Neutrophils # (A) 6.5 k/uL (1.3-7.7); Neutrophils % (A) 73 %; Platelet Count 137 k/uL (150-450); RBC 4.39 m/uL (3.80-5.40); WBC 8.9 k/uL (3.8-10.6)
[2023-05-01 15:43] LABS: Glucose,Whole Blood 76 mg/dL (70-110)
[2023-05-01] MEDS: LACTATED RINGERS 1,000 ML IV SCH (15:55)
[2023-05-01] MEDS: CITRIC ACID-SODIUM CITRATE 15 ML CUP PO ONE (15:56)
[2023-05-01] MEDS ORDERED: ONDANSETRON 4 MG/2 ML VIAL ONE (16:38)
[2023-05-01] MEDS ORDERED: KETOROLAC 15 MG/ML 1 ML VIAL ONE (16:38)
[2023-05-01] MEDS ORDERED: OXYTOCIN 30 UNITS/500 ML NS BAG IV ONE (16:38)
[2023-05-01] MEDS ORDERED: MORPHINE SULFATE (PF) 0.3 MG/0.3 ML SYR ONE (16:38)
[2023-05-01] MEDS ORDERED: NALBUPHINE 10 MG/ML (10 ML MDV) ONE (16:38)
[2023-05-01] MEDS ORDERED: NALOXONE 0.4 MG/ML 1 ML VIAL IV PRN ×2 (17:23→19:07)
[2023-05-01] MEDS ORDERED: ONDANSETRON 4 MG/2 ML VIAL IVP PRN ×2 (17:23→19:07)
[2023-05-01] MEDS ORDERED: NALBUPHINE 10 MG/ML (10 ML MDV) IV PRN (17:23)
[2023-05-01] MEDS ORDERED: diphenhydrAMINE 50 MG/ML 1 ML VIAL IVP PRN ×3 (17:23→19:07)
--- NOTE | 2023-05-01 17:28 | P.HPOB ---
History of Present Illness H&P Date: 05/01/23 Chief Complaint: Spontaneous rupture of membranes This is a 32-year-old female 1 para 0 with an estimated date of confinement of 05/05/2023, estimated gestational age of 39-3/7 weeks, who presents for spontaneous rupture membranes with meconium fluid at approximately 12:30 PM today. She is having mild contractions. care has been complicated by gestational diabetes on metformin and anxiety. She has been followed by maternal medicine. Her latest ultrasound did show a fetus measuring 9 lbs. 14 oz. and they have recommended delivery due to macrosomia and gestational diabetes. labs: Group B streptococcus-negative One hour Glucola-198 Maternity T 21-female, negative Hemoglobin-13 Blood type-A+ Rubella-immune Toxoplasma screen-negative RPR-nonreactive HIV-nonreactive Hepatitis C antibody-negative nonreactive Random glucose-75 In about a screen-negative Hepatitis B surface antigen-negative GC/monica/Trichomonas-negative Obstetrical history: First Gynecologic history: No history of sexual transmitted diseases. Social history: She is . She is currently unemployed. Review of Systems Constitutional: Denies chills, Denies fever Eyes: denies blurred vision, denies pain Ears, nose, mouth and throat: Denies headache, Denies sore throat Cardiovascular: Reports shortness of breath (Today.), Denies chest pain Gastrointestinal: Reports abdominal pain (Occasional contractions), Reports heartburn Genitourinary: Reports pelvic pain, Reports Musculoskeletal: Reports low back pain Integumentary: Denies pruritus, Denies rash Neurological: Denies numbness, Denies weakness Psychiatric: Reports anxiety, Reports depression Past Medical History Past Medical History: Diabetes Mellitus, Fibromyalgia, GERD/Reflux Additional Past Medical History / Comment(s): gestational diabetes-on metformin History of Any Multi-Drug Resistant Organisms: None Reported Past Surgical History: No Surgical Hx Reported Additional Past Surgical History / Comment(s): colonoscopy Past Anesthesia/Blood Transfusion Reactions: No Reported Reaction Past Psychological History: Anxiety, Depression Additional Psychological History / Comment(s): Obsessive-compulsive disorder Smoking Status: Never smoker Past Alcohol Use History: None Reported Past Drug Use History: None Reported - Past Family History Mother Family Medical History: Hypertension Father Family Medical History: Hypertension Sister(s) Additional Family Medical History / Comment(s): Endometriosis Medications and Allergies Home Medications Medication Instructions Recorded Confirmed Type PARoxetine HCL [Paxil] 60 mg PO DAILY 04/19/23 05/01/23 History Vit No.179/Iron/Folic 2 each PO DAILY 04/19/23 05/01/23 History [ Tablet] metFORMIN HCL 500 mg PO AC-SUPPER 04/19/23 05/01/23 History Iron 18 mg PO DAILY 04/20/23 05/01/23 History Magnesium 200 mg PO HS 04/20/23 05/01/23 History Psyllium Husk [Fiber Capsule] 0.4 gm PO HS 04/20/23 05/01/23 History Sennosides-Docusate Sodium 1 tab PO DAILY 04/20/23 05/01/23 History [Senokot-S] Allergies Allergy/AdvReac Type Severity Reaction Status Date / Time No Known Allergies Allergy Verified 05/01/23 14:13 Exam Osteopathic Statement: *. No significant issues noted on an osteopathic structural exam other than those noted in the History and Physical/Consult. Vital Signs Temp Pulse Resp BP Pulse Ox 05/01/23 14:13 98.1 F 88 18 120/84 96 Intake and Output 05/01/23 05/01/23 05/01/23 06:59 14:59 22:59 Other: Weight 89.811 kg HEENT: Within normal limits Heart: Regular rate and rhythm Lungs: Clear to auscultation bilaterally Abdomen: Cervix: Closed, positive grossly ruptured meconium stained fluid with positive amnisure. heart tones: Initially are category 1 with reactive strip. Contractions: Irregular Extremities: Negative Homans Results Result Diagrams: 05/01/23 15:10 Abnormal Lab Results - Last 24 Hours (Table) 05/01/23 Range/Units 15:10 Plt Count 137 L (150-450) k/uL Assessment and Plan (1) 39 weeks gestation of Current Visit: Yes Status: Acute Code(s): Z3A.39 - 39 WEEKS GESTATION OF SNOMED Code(s): 61082792 (2) Gestational diabetes Current Visit: Yes Status: Acute Code(s): O24.419 - GESTATIONAL DIABETES MELLITUS IN , UNSP CONTROL SNOMED Code(s): 80464956 (3) macrosomia during in third trimester Current Visit: Yes Status: Acute Code(s): O36.63X0 - MATERNAL CARE FOR EX CESS GROWTH, THIRD TRIMESTER, UNSP SNOMED Code(s): 170025308 Plan: Admission for spontaneous rupture membranes. We'll proceed with primary section per [facility] recommendations due to macrosomia and gestational diabetes. I have discussed the risks, benefits, and alternative therapies for the above- mentioned procedure and for both sedation/anesthesia as well as necessary blood products administration, if indicated, as they pertain to this patient. The patient has indicated her understanding and acceptance of the risks and procedures discussed.
--- NOTE | 2023-05-01 17:32 | P.OP ---
Date of Procedure: 05/01/23 Preoperative Diagnosis: 1. Intrauterine at 39-3/7 weeks. 2. Spontaneous rupture membranes with meconium fluid. 3. Gestational diabetes. 4. macrosomia. Postoperative Diagnosis: Same Procedure(s) Performed: Primary low transverse section Anesthesia: spinal (Duramorph) Surgeon: Dulce Miller Manager Category #1: Mitesh Clements Estimated Blood Loss (ml): 500 Pathology: other (Placenta) Condition: stable Disposition: floor Indications for Procedure: This is a 32-year-old female 1 para 0 at 39-3/7 weeks who presented with spontaneous rupture membranes with meconium fluid. She is a scheduled section due to macrosomia and gestational diabetes. I have discussed the risks, benefits, and alternative therapies for the above- mentioned procedure and for both sedation/anesthesia as well as necessary blood products administration, if indicated, as they pertain to this patient. The patient has indicated her understanding and acceptance of the risks and procedures discussed. Operative Findings: A viable female infant with scores of 8 at 1 minute and 9 at 5 minutes and infant weight of 8 lbs. 11 oz. and nuchal cord 2 was noted. Normal uterus tubes and ovaries are noted. There was noted to be a small adhesion of the fimbriated end of the fallopian tube to the back of the uterus on the left. Description of Procedure: The patient is taken to the operating room where she is placed in the dorsal supine position with leftward tilt after spinal Duramorph anesthesia is given. She is prepped and draped in the normal sterile fashion. Skin was tested and found to be adequately anesthetized. A Pfannenstiel skin incision was made with a scalpel. A second knife was used to carry the incision down to the underlying layer of fascia. The fascia was nicked in the midline with a scalpel and then extended laterally bilaterally with Holcomb scissors. The anterior lip of the fascia was grasped with 2 Good clamps and then dissected off the underlying rectus muscle in the midline with Holcomb scissors. The inferior aspect of the fascial incision was grasped with 2 Good clamps and dissected off the underlying rectus muscle and the midline with Holcomb scissors. Next the peritoneum layer was tented up with 2 hemostats and then entered sharply with the scalpel. The incision is extended superiorly and inferiorly with Metzenbaum scissors. Next a DeLee retractor is placed. The vesicouterine peritoneum is entered sharply with Metzenbaum scissors and extended laterally bilaterally with Metzenbaum scissors and then the bladder flap is pushed inferiorly. The lower uterine segment is incised in transverse fashion with the scalpel and then bluntly entered with a hemostat. Clear fluid is noted. The incision was then extended laterally bilaterally with 2 fingers. Next the infant's head is delivered through the incision. Nose and mouth are bulb suctioned. The remainder of the infant is easily delivered and placed on mother's abdomen. Co rd is clamped and cut. is taken to warmer by nursing staff. Uterine fundus is gently massaged and placenta is delivered manually. Uterus is exteriorized and cleared of all clots and debris. Uterine incision is closed with 0 Vicryl suture in a running locked fashion. A second layer of 0 Vicryl suture is used in a running fashion for hemostasis. Once adequate hemostasis as assured, the vesicouterine peritoneum is reapproximated with 2-0 Vicryl suture in a running fashion. Posterior cul-de-sac is suctioned of all clots and debris. There is noted to be a small adhesion from the fimbriated end of the left fallopian tube to the back side of the left side of the uterus. This is released with Bovie cautery. Good hemostasis is noted. Uterus is returned to the abdomen. Incision is noted to be hemostatic. Peritoneal layer is closed with 0 Vicryl suture in a running fashion. Muscle layer is reapproximated with 0 Vicryl suture in interrupted fashion. Fascia layer is then closed with 0 PDS suture with 2 sutures meeting in the midline and the knots buried in either side and in the midline. The subcutaneous tissue was then closed with 2-0 Vicryl suture. Skin layer was then closed with batsheva. All sponge and needle counts are correct. The patient is taken to recovery room in stable condition.
--- NOTE | 2023-05-01 17:33 | P.MSEPDOC ---
Presenting Problems - Arrival Data Date of Arrival on Unit: 05/01/23 Time of Arrival on Unit: 13:49 Mode of Transport: Ambulatory - Complaint OB-Reason for Admission/Chief Complaint: Rule Out SROM Comment: SROM at 1230, at 1330 VERY large gush of fluid in car. green fluid. Medical History - Information : 1 Para: 0 Term: 0 : 0 Abortions: Spontaneous or Elective: 0 Number of Living Children: 0 - Gestational Age Gestational Age by YUMIKO (wks/days): 39 Weeks and 3 Days - History Complications: GDM Review of Systems - Review of Systems Constitutional: No problems Breast: No problems ENT: No problems Cardiovascular: No problems Respiratory: No problems Gastrointestinal: No problems Genitourinary: No problems Musculoskeletal: No problems Neurological: No problems Skin: No problems Vital Signs - Temperature Temperature: 98.1 F Temperature Source: Temporal Artery Scan - Pulse Right Pulse Oximetery Pulse Rate: 88 Pulse Assessment Method: Pulse Oximetry - Respirations Respiratory Rate: 18 Oxygen Delivery Method: Room Air O2 Sat by Pulse Oximetry: 96 - Blood Pressure Right Arm Blood Pressure: 120/84 Blood Pressure Mean: 96 Blood Pressure Source: Automatic Cuff Medical Screen Scoring - Uterine Contractions Frequency From (mins): 4 Frequency To (mins): 5 Duration From (seconds): 50 Duration To (seconds): 60 Intensity: Mild Resting: Soft to palpation - Assessment - Baby A Baseline FHR: 130 Heart Rate - NICHD Category: Category I (Normal) NST: Reactive Physician Notification - Physician Notified Physician Notified Date: 05/01/23 Physician Notified Time: 14:35 Physician: Dulce Miller Order Received: Yes (admit patient) Maternal Triage Index - Maternal Triage Index Presenting for scheduled procedure w/no complaint: No - Stat/Priority 1 Stat Priority 1: No - Urgent/Priority 2 Urgent Priority 2: No - Prompt/Priority 3 Prompt Priority 3: No - Non-Urgent/Priority 4 Non-Urgent Priority 4: Yes Criteria Met for Priority 4: SROM 39 weeks gestation Disposition - Disposition OB Disposition: Admit I agree with the RN Medical Screening Exam: Yes Case reviewed; plan agreed upon as documented in EMR&OBIX.: Yes Diagnosis: ONSET LABOR 37-39 WEEKS, W DEL BY (PLANNED) SECTION
[2023-05-01] MEDS ORDERED: HYDROmorphone 0.5 MG/0.5 ML SYRINGE IVP PRN (19:07)
[2023-05-01] MEDS ORDERED: SIMETHICONE 80 MG CHEWABLE PO PRN (19:07)
[2023-05-01] MEDS ORDERED: diphenhydrAMINE 25 MG CAP PO PRN (19:07)
[2023-05-01] MEDS ORDERED: HYDROmorphone 1 MG/ML 1 ML SYRINGE IVP PRN (19:07)
[2023-05-01] MEDS ORDERED: METOCLOPRAMIDE 5 MG/ML 2 ML VIAL IVP PRN (19:07)
[2023-05-01] MEDS ORDERED: ZOLPIDEM 5 MG TAB PO PRN (19:07)
[2023-05-01] MEDS ORDERED: LANOLIN CREAM 5 GM TUBE TOPICAL PRN (19:07)
[2023-05-01] MEDS ORDERED: diphenhydrAMINE 50 MG CAP PO PRN (19:07)
[2023-05-01] MEDS: ACETAMINOPHEN TAB 500 MG TAB PO SCH (19:53)
[2023-05-01] MEDS: SENNOSIDES-DOCUSATE SODIUM 1 EACH TAB PO SCH (20:00)
[2023-05-01] MEDS: KETOROLAC 15 MG/ML 1 ML VIAL IVP SCH (23:41)
[2023-05-02] MEDS: ACETAMINOPHEN IV (For NPO) 1,000 MG in EMPTY BAG 1 BAG IVPB SCH (00:11)
[2023-05-02] MEDS: IBUPROFEN 600 MG TAB PO SCH (00:11)
--- NOTE | 2023-05-02 05:46 | P.PNOBGPC ---
Subjective - Subjective Principal diagnosis: Status post primary postoperative day #1 Interval history: Patient is doing well. She has ambulated. She is passing flatus but no bowel movement yet. She has not urinated yet. She is breast-feeding. Pain has been well controlled. Patient reports: Reports appetite normal, Reports pain well controlled, Reports ambulating normally, Denies nauseated : doing well, nursing well Objective - Vital Signs Latest vital signs: Vital Signs Temp Pulse Resp BP Pulse Ox 05/02/23 04:38 97.7 F 78 16 129/86 95 05/02/23 02:00 16 05/02/23 00:12 98.2 F 68 16 117/77 96 05/01/23 22:22 16 05/01/23 20:23 16 05/01/23 19:25 97.0 F L 77 16 123/69 96 05/01/23 19:10 77 16 117/72 99 05/01/23 18:55 70 18 133/80 100 05/01/23 18:40 79 18 128/76 100 05/01/23 18:25 98.4 F 77 18 152/67 100 05/01/23 18:23 18 100 05/01/23 18:10 69 18 133/74 99 05/01/23 17:55 70 18 139/89 98 05/01/23 17:40 72 18 143/87 97 05/01/23 17:33 98.1 F 88 18 120/84 96 05/01/23 17:25 70 18 130/79 96 05/01/23 17:23 18 96 05/01/23 14:13 98.1 F 88 18 120/84 96 Intake and Output 05/01/23 05/01/23 05/02/23 14:59 22:59 06:59 Intake Total 500 Output Total 308 300 Balance -308 200 Intake: Oral 500 Output: Urine 300 Uretheral (Marroquin) 300 Output, Quantitative 308 Blood Loss Other: Voiding Method Indwelling Catheter Weight 89.811 kg 89.811 kg - Exam Extremities: Present: normal. Absent: tenderness Abdomen: Present: normal appearance, soft. Absent: distention, tenderness Incision: Present: normal, dry, intact. Absent: erythematous Uterus: Present: normal, firm. Absent: tenderness - Labs Labs: Abnormal Lab Results - Last 24 Hours (Table) 02/14/24 Range/Units 15:10 Plt Count 137 L (150-450) k/uL Assessment and Plan Assessment: Status post primary low transverse section postoperative day #1 (1) 39 weeks gestation of Current Visit: Yes Status: Acute Code(s): Z3A.39 - 39 WEEKS GESTATION OF SNOMED Code(s): 46838905 (2) Gestational diabetes Current Visit: Yes Status: Acute Code(s): O24.419 - GESTATIONAL DIABETES MELLITUS IN , UNSP CONTROL SNOMED Code(s): 28607383 (3) macrosomia during in third trimester Current Visit: Yes Status: Acute Code(s): O36.63X0 - MATERNAL CARE FOR EXCESS GROWTH, THIRD TRIMESTER, UNSP SNOMED Code(s): 317699513 Plan: Continue with postoperative and care today. Advance diet as tolerated. May shower.
[2023-05-02 07:51] LABS: Basophils % (A) 1 %; Eosinophils # (A) 0.1 k/uL (0-0.7); Eosinophils % (A) 1 %; HCT 33.9 % (34.0-46.0); Lymphocytes # (A) 1.7 k/uL (1.0-4.8); Lymphocytes % (A) 19 %; MCH 32.4 pg (25.0-35.0); MCHC 33.6 g/dL (31.0-37.0); MCV 96.3 fL (80.0-100.0); Mean Platelet Volume 10.8; Monocytes # (A) 0.5 k/uL (0-1.0); Monocytes % (A) 5 %; Neutrophils # (A) 6.9 k/uL (1.3-7.7); Neutrophils % (A) 74 %; Platelet Count 105 k/uL (150-450); RBC 3.52 m/uL (3.80-5.40); RDW 14.1 % (11.5-15.5); WBC 9.3 k/uL (3.8-10.6)
[2023-05-02 07:59] LABS: HGB 11.4 gm/dL (11.4-16.0)
[2023-05-02] MEDS: PRENATAL VIT-IRON-FOLIC ACID 1 EACH TABLET PO SCH (08:18)
[2023-05-02] MEDS: PARoxetine 20 MG TAB PO SCH (08:20)
--- NOTE | 2023-05-02 08:27 | P.PN ---
Progress Note - Text Progress Note Date: 05/02/23 Postoperative day 1 status post section under spinal anesthesia, and intrathecal morphine given for postoperative analgesia, patient doing well, there is no anesthesia related complications, Patient had no headache, vital signs stable , Assessment and plan= postop day 1 status post , doing well there is no anesthesia related complication.
[2023-05-03 01:53] VITALS: RESP 16
--- NOTE | 2023-05-03 08:05 | P.DS ---
Providers Date of admission: 05/01/23 14:23 Expected date of discharge: 05/03/23 Attending physician: Dulce Miller Primary care physician: Stated None - Discharge Diagnosis(es) (1) 39 weeks gestation of Current Visit: Yes Status: Acute (2) Gestational diabetes Current Visit: Yes Status: Acute (3) macrosomia during in third trimester Current Visit: Yes Status: Acute Hospital Course: This is a 32-year-old female 1 para 0 at 39-3/7 weeks who presented with spontaneous rupture of membranes. She underwent a primary low transverse section on 05/01/2023 for delivery of a viable female with scores of 8 at 1 minute and 9 at 5 minutes and weight of 8 lbs. 11 oz. Her section was performed due to macrosomia and gestational diabetes on metformin. Original estimated weight was 9 lbs. 14 oz. on ultrasound. Her postoperative and courses have been uncomplicated. Lochia has been decreasing. Pain is well-controlled. She did have to use oxycodone 2 times through the night. She is passing flatus but no bowel movement yet. She is tolerating regular diet. She is breast-feeding. Vital signs are stable. Abdomen is soft with positive bowel sounds 4. Incision is clean dry and intact with batsheva in place. Extremities show negative Homans. Impression is status post primary low transverse section postoperative day #2. Plan is to discharge home later today. Routine postoperative and instructions are given. She will be given a prescription for ibuprofen and oxycodone. She has been counseled regarding opioid use and has signed a consent form. She is advised follow-up in the office in approximately 2 weeks for a postoperative check and in 5 to 6 weeks for a check. She is advised to call the office if she has any further questions or concerns prior to her appointment time. Procedures: Primary low transverse section on 05/01/2023 Patient Condition at Discharge: Stable Plan - Discharge Summary New Discharge Prescriptions: New oxyCODONE HCL [OxyIR] 5 mg PO Q4HR PRN #12 tab PRN Reason: Pain Scale 4 - 6 Ibuprofen [Motrin] 600 mg PO Q6H #60 tab Acetaminophen Tab [Tylenol] 1,000 mg PO Q6H tab Continue Vit No.179/Iron/Folic [ Tablet] 2 each PO DAILY PARoxetine HCL [Paxil] 60 mg PO DAILY Sennosides-Docusate Sodium [Senokot-S] 1 tab PO DAILY Psyllium Husk [Fiber Capsule] 0.4 gm PO HS Magnesium 200 mg PO HS Iron 18 mg PO DAILY Discontinued metFORMIN HCL 500 mg PO AC-SUPPER Discharge Medication List PARoxetine HCL [Paxil] 60 mg PO DAILY 04/19/23 [History] Vit No.179/Iron/Folic [ Tablet] 2 each PO DAILY 04/19/23 [History] Iron 18 mg PO DAILY 04/20/23 [History] Magnesium 200 mg PO HS 04/20/23 [History] Psyllium Husk [Fiber Capsule] 0.4 gm PO HS 04/20/23 [History] Sennosides-Docusate Sodium [Senokot-S] 1 tab PO DAILY 04/20/23 [History] Acetaminophen Tab [Tylenol] 1,000 mg PO Q6H tab 05/03/23 [Rx] Ibuprofen [Motrin] 600 mg PO Q6H #60 tab 05/03/23 [Rx] oxyCODONE HCL [OxyIR] 5 mg PO Q4HR PRN #12 tab 05/03/23 [Rx] Follow up Appointment(s)/Referral(s): Dulce Miller DO [Doctor of Osteopathic Medicine] - 06/04/23 10:00 am (Post Op Appointment 05-17-2023 at 9am) Activity/Diet/Wound Care/Special Instructions: Instructions 1. Do not begin any exercise program for 3 weeks. 2. Do not resume sexual relations for 3 weeks or longer if uncomfortable. 3. You may take tub baths or showers at any time. 4. You may use tampons if desired after 3 weeks. 5. Keep the area of episiotomy (stitches) clean and dry. 6. If you are not nursing, wear a good fitting, supportive bra during the day and limit fluid intake for at least 1 week to prevent breast engorgement. 7. Call the office, [phone], within the next week to make appointment for your 6 week checkup if it has not already been made. 8. Report any of the following occurrences to the doctor promptly: a. Heavy, excessive bleeding b. Chills, fever c. Burning or frequency of urination d. Pain or redness and breasts if nursing e. Increasing pain or swelling in episiotomy (stitches). In addition to the above instructions, the following additional should be followed: 1. No heavy lifting or straining (exercising) until after 6 week checkup. 2. Keep abdominal incision clean and dry: You may wear a dressing if more comfortable. 3. Make office appointment for 10 days after going home or as instructed by her doctor. Discharge Disposition: HOME SELF-CARE
[2023-05-03 09:20] VITALS: TEMP 98
[2023-05-03 17:33] VITALS: BP 129/84; PULSE 86
== END 2023-05-03 16:30 | disposition home or self-care (01) | DRG 788 ==
LOC: FBPOP 13:49 → 4FBP 14:23
PROVIDERS: ADMIT Obstetrics & Gynecology; ATTEND Obstetrics & Gynecology
PROC: 10D00Z1 Extraction of Products of Conception, Low, Open Approach (ICD-10-PCS; principal; 2023-05-01 16:15)
DX: O42.92 Full-term premature rupture of membranes, unspecified as to length of time between rupture and onset of labor (principal); O24.425 Gestational diabetes mellitus in childbirth, controlled by oral hypoglycemic drugs; F32.A Depression, unspecified; F41.9 Anxiety disorder, unspecified; F42.9 Obsessive-compulsive disorder, unspecified; M79.7 Fibromyalgia; O69.81X0 Labor and delivery complicated by cord around neck, without compression, not applicable or unspecified; O36.63X0 Maternal care for excessive fetal growth, third trimester, not applicable or unspecified; O77.0 Labor and delivery complicated by meconium in amniotic fluid; O99.344 Other mental disorders complicating childbirth; Z37.0 Single live birth; Z3A.39 39 weeks gestation of pregnancy; Z56.0 Unemployment, unspecified; Z79.899 Other long term (current) drug therapy; Z82.49 Family history of ischemic heart disease and other diseases of the circulatory system
CPT/HCPCS: 59025; 85025; 86850; 86900; 86901; 88307; 99213

== ENCOUNTER 2024-02-10 16:37 | Emergency (ER) | payer OTHER ==
[2024-02-10 16:57] VITALS: TEMP 98.4
[2024-02-10 18:12] LABS: Basophils # (A) 0.1 k/uL (0-0.2); Basophils % (A) 0 %; Eosinophils # (A) 0.4 k/uL (0-0.7); Eosinophils % (A) 3 %; HCT 42.4 % (34.0-46.0); HGB 14.1 gm/dL (11.4-16.0); Lymphocytes # (A) 2.1 k/uL (1.0-4.8); Lymphocytes % (A) 18 %; MCH 31.1 pg (25.0-35.0); MCHC 33.2 g/dL (31.0-37.0); MCV 93.6 fL (80.0-100.0); Mean Platelet Volume 7.3; Monocytes # (A) 0.5 k/uL (0-1.0); Monocytes % (A) 5 %; Neutrophils # (A) 8.1 k/uL (1.3-7.7); Neutrophils % (A) 72 %; Platelet Count 293 k/uL (150-450); RBC 4.53 m/uL (3.80-5.40); RDW 12.7 % (11.5-15.5); WBC 11.2 k/uL (3.8-10.6)
[2024-02-10 18:18] LABS: ALT 55 U/L (4-34); AST 21 U/L (14-36); African American GFR (CKD) >90 (>60 ml/min/1.73 sqM); Albumin 4.4 g/dL (3.5-5.0); Alkaline Phosphatase 100 U/L (38-126); Anion Gap 6 mmol/L; Blood Urea Nitrogen 17 mg/dL (7-17); Calcium 9.8 mg/dL (8.4-10.2); Carbon Dioxide 26 mmol/L (22-30); Chloride 107 mmol/L (98-107); Glucose 111 mg/dL (74-99); Non-African American GFR(CKD) >90 (>60 ml/min/1.73 sqM); Potassium 3.8 mmol/L (3.5-5.1); Sodium 139 mmol/L (137-145); Total Bilirubin 0.4 mg/dL (0.2-1.3); Total Protein 6.9 g/dL (6.3-8.2)
--- NOTE | 2024-02-10 18:25 | XR ---
EXAMINATION TYPE: XR chest 2V DATE OF EXAM: 02/10/2024 6:11 PM COMPARISON: None available. CLINICAL INDICATION: Female, 33 years old with history of difficulty breathing; [facility] TECHNIQUE: XR chest 2V Frontal and lateral views of the chest. FINDINGS: Lungs/Pleura: There is no evidence of pleural effusion, focal consolidation, or pneumothorax. Pulmonary vascularity: Unremarkable. Heart/mediastinum: Cardiomediastinal silhouette is unremarkable. Musculoskeletal: No acute osseous pathology. Other findings: None IMPRESSION: No acute cardiopulmonary disease/process. [facility], , 02/10/2024 6:23 PM
--- NOTE | 2024-02-10 19:11 | ED ---
General Adult HPI - General Chief complaint: Nausea/Vomiting/Diarrhea Stated complaint: Lack of sleep, SOB, Nausea Time Seen by Provider: 02/10/24 16:55 Source: patient Mode of arrival: ambulatory Limitations: no limitations - History of Present Illness Initial comments: 33-year-old female who presents to the emergency department with report of shortness of breath, nausea, dizziness and insomnia. Patient recently was diagnosed with laryngitis. She was started on steroids and antibiotics through an urgent care. She has finished these medications. Reports that she still feels ill. She feels like her shortness of breath is worsening. She is also had insomnia. She denies fevers or chills. No production with the cough. Denies chest pain. Not currently on any medications. Denies concern for . No changes in her bowel or bladder habits. No other alleviating, precipitating modifying factors - Related Data Home Medications Medication Instructions Recorded Confirmed PARoxetine HCL [Paxil] 60 mg PO DAILY 04/19/23 05/01/23 Vit No.179/Iron/Folic 2 each PO DAILY 04/19/23 05/01/23 [ Tablet] Iron 18 mg PO DAILY 04/20/23 05/01/23 Magnesium 200 mg PO HS 04/20/23 05/01/23 Psyllium Husk [Fiber Capsule] 0.4 gm PO HS 04/20/23 05/01/23 Sennosides-Docusate Sodium 1 tab PO DAILY 04/20/23 05/01/23 [Senokot-S] Previous Rx's Medication Instructions Recorded Acetaminophen Tab [Tylenol] 1,000 mg PO Q6H tab 05/03/23 Ibuprofen [Motrin] 600 mg PO Q6H #60 tab 05/03/23 oxyCODONE HCL [OxyIR] 5 mg PO Q4HR PRN #12 tab 05/03/23 Albuterol Inhaler [Ventolin Hfa 2 puff INHALATION Q4HR PRN #8 gm 02/10/24 Inhaler] Magnesium Oxide [Mag-Ox] 400 mg PO HS PRN #30 tablet 02/10/24 Melatonin 3 mg PO HS PRN #30 tablet 02/10/24 Allergies Allergy/AdvReac Type Severity Reaction Status Date / Time No Known Allergies Allergy Verified 02/10/24 16:57 Review of Systems ROS Statement: Those systems with pertinent positive or pertinent negative responses have been documented in the HPI. ROS Other: All systems not noted in ROS Statement are negative. Past Medical History Past Medical History: Diabetes Mellitus, Fibromyalgia, GERD/Reflux Additional Past Medical History / Comment(s): gestational diabetes-on metformin History of Any Multi-Drug Resistant Organisms: None Reported Past Surgical History: No Surgical Hx Reported Additional Past Surgical History / Comment(s): colonoscopy Past Anesthesia/Blood Transfusion Reactions: No Reported Reaction Past Psychological History: Anxiety, Depression Smoking Status: Never smoker Past Alcohol Use History: None Reported Past Drug Use History: None Reported - Past Family History Mother Family Medical History: Hypertension Father Family Medical History: Hypertension Sister(s) Additional Family Medical History / Comment(s): Endometriosis General Exam Limitations: no limitations General appearance: alert, in no apparent distress Head exam: Present: atraumatic, normocephalic, normal inspection Eye exam: Present: normal appearance, PERRL, EOMI. Absent: scleral icterus, conjunctival injection, periorbital swelling ENT exam: Present: normal exam, mucous membranes moist Neck exam: Present: normal inspection. Absent: tenderness, meningismus, lymphadenopathy Respiratory exam: Present: normal lung sounds bilaterally. Absent: respiratory distress, wheezes, rales, rhonchi, stridor Cardiovascular Exam: Present: regular rate, normal rhythm, normal heart sounds. Absent: systolic murmur, diastolic murmur, rubs, gallop, clicks GI/Abdominal exam: Present: soft, normal bowel sounds. Absent: distended, tenderness, guarding, rebound, rigid Extremities exam: Present: normal inspection, full ROM, normal capillary refill. Absent: tenderness, pedal edema, joint swelling, calf tenderness Back exam: Present: normal inspection Neurological exam: Present: alert, oriented X3, CN II-XII intact Psychiatric exam: Present: normal affect, normal mood Skin exam: Present: warm, dry, intact, normal color. Absent: rash Course Vital Signs 02/10/24 02/10/24 02/10/24 16:53 18:04 19:09 Temperature 98.4 F Pulse Rate 97 Pulse Rate [ 87 Sitting] Pulse Rate [ 100 Standing] Pulse Rate [ 71 Supine] Respiratory 18 18 Rate Blood Pressure 140/101 Blood Pressure 120/80 [Sitting] Blood Pressure 103/67 [Standing] Blood Pressure 110/74 [Supine] O2 Sat by Pulse 97 Oximetry 02/10/24 19:31 Temperature Pulse Rate 78 Pulse Rate [ Sitting] Pulse Rate [ Standing] Pulse Rate [ Supine] Respiratory 16 Rate Blood Pressure 120/84 Blood Pressure [Sitting] Blood Pressure [Standing] Blood Pressure [Supine] O2 Sat by Pulse 98 Oximetry Medical Decision Making - Medical Decision Making Was pt. sent in by a medical professional or institution (, [facility], [employer], urgent care, hospital, or custodial...) When possible be specific @ -No Did you speak to anyone other than the patient for history (EMS, parent, family, police, friend...)? What history was obtained from this source @ -No Did you review nursing and triage notes (agree or disagree)? Why? @ -I reviewed and agree with nursing and triage notes Were old charts reviewed (outside hosp., previous admission, EMS record, old EKG, old radiological studies, urgent care reports/EKG's, custodial records)? Report findings @ -No old charts were reviewed Differential Diagnosis (chest pain, altered mental status, abdominal pain women, abdominal pain men, vaginal bleeding, weakness, fever, dyspnea, syncope, headache, dizziness, GI bleed, back pain, seizure, CVA, palpatations, mental health, musculoskeletal)? @ -Pneumonia, influenza, COVID EKG interpreted by me (3pts min.). @ -Yes and demonstrates sinus rhythm with a rate of 80. TN interval 134. QRS 94. QTc of 384. No acute ST segment elevations or depressions X-rays interpreted by me (1pt min.). @ -Yes and demonstrates no acute process CT interpreted by me (1pt min.). @ -None done U/S interpreted by me (1pt. min.). @ -None done What testing was considered but not performed or refused? (CT, X-rays, U/S, labs)? Why? @ -None What meds were considered but not given or refused? Why? @ -None Did you discuss the management of the patient with other professionals (professionals i.e. RAYRAY Terrell, [employer], lab, RT, psych nurse, social media intern, mycology teacher, teacher, civil preparedness training officer, watch caser)? Give summary @ -No Was smoking cessation discussed for >3mins.? @ -No Was critical care preformed (if so, how long)? @ -No Were there social determinants of health that impacted care today? How? (Homelessness, low income, unemployed, alcoholism, drug addiction, transportation, low edu. Level, literacy, decrease access to med. care, halfway, rehab)? @ -No Was there de-escalation of care discussed even if they declined (Discuss DNR or withdrawal of care, Hospice)? DNR status @ -No What co-morbidities impacted this encounter? (DM, HTN, Smoking, COPD, CAD, Cancer, CVA, ARF, Chemo, Hep., AIDS, mental health diagnosis, sleep apnea, morbid obesity)? @ -None Was patient admitted / discharged? Hospital course, mention meds given and route, prescriptions, significant lab abnormalities, going to OR and other pertinent info. @ -Upon arrival patient seen and evaluated in bed 31. Thorough history and physical exam was performed. Laboratory studies are conducted. Chest x-ray was performed. Results are discussed with the patient. I did prescribe melatonin, magnesium and an albuterol inhaler. Patient is to take these medications as they are instructed to help with the sleep and cough. She is to follow-up with her primary care doctor within 2 to 4 days and return for any new or worsening symptoms. Patient agreeable plan was discharged home in stable condition Undiagnosed new problem with uncertain prognosis? @ -No Drug Therapy requiring intensive monitoring for toxicity (Heparin, Nitro, Insulin, Cardizem)? @ -No Were any procedures done? @ -No Diagnosis/symptom? @ -Acute cough, acute bronchitis, insomnia Acute, or Chronic, or Acute on Chronic? @ -Acute Uncomplicated (without systemic symptoms) or Complicated (systemic symptoms)? @ -Complicated Side effects of treatment? @ -No Exacerbation, Progression, or Severe Exacerbation? @ -No Poses a threat to life or bodily function? How? (Chest pain, USA, VT, pneumonia, PE, COPD, DKA, ARF, appy, cholecystitis, CVA, Diverticulitis, Homicidal, Suicidal, threat to staff... and all critical care pts) @ -No - Lab Data Result diagrams: 02/10/24 17:55 02/10/24 17:55 Lab Results 02/10/24 02/10/24 02/10/24 Range/Units 17:55 17:55 17:55 WBC 11.2 H (3.8-10.6) k/uL RBC 4.53 (3.80-5.40) m/uL Hgb 14.1 (11.4-16.0) gm/dL Hct 42.4 (34.0-46.0) % MCV 93.6 (80.0-100.0) fL MCH 31.1 (25.0-35.0) pg MCHC 33.2 (31.0-37.0) g/dL RDW 12.7 (11.5-15.5) % Plt Count 293 (150-450) k/uL MPV 7.3 Neutrophils % 72 % Lymphocytes % 18 % Monocytes % 5 % Eosinophils % 3 % Basophils % 0 % Neutrophils # 8.1 H (1.3-7.7) k/uL Lymphocytes # 2.1 (1.0-4.8) k/uL Monocytes # 0.5 (0-1.0) k/uL Eosinophils # 0.4 (0-0.7) k/uL Basophils # 0.1 (0-0.2) k/uL D-Dimer 0.27 (<0.60) mg/L FEU Sodium 139 (137-145) mmol/L Potassium 3.8 (3.5-5.1) mmol/L Chloride 107 (98-107) mmol/L Carbon Dioxide 26 (22-30) mmol/L Anion Gap 6 mmol/L BUN 17 (7-17) mg/dL Creatinine 0.76 (0.52-1.04) mg/dL Est GFR (CKD-EPI)AfAm >90 (>60 ml/min/1.73 sqM) Est GFR (CKD-EPI)NonAf >90 (>60 ml/min/1.73 sqM) Glucose 111 H (74-99) mg/dL Calcium 9.8 (8.4-10.2) mg/dL Total Bilirubin 0.4 (0.2-1.3) mg/dL AST 21 (14-36) U/L ALT 55 H (4-34) U/L Alkaline Phosphatase 100 (38-126) U/L Troponin I (0.000-0.034) ng/mL Total Protein 6.9 (6.3-8.2) g/dL Albumin 4.4 (3.5-5.0) g/dL 02/10/24 Range/Units 17:55 WBC (3.8-10.6) k/uL RBC (3.80-5.40) m/uL Hgb (11.4-16.0) gm/dL Hct (34.0-46.0) % MCV (80.0-100.0) fL MCH (25.0-35.0) pg MCHC (31.0-37.0) g/dL RDW (11.5-15.5) % Plt Count (150-450) k/uL MPV Neutrophils % % Lymphocytes % % Monocytes % % Eosinophils % % Basophils % % Neutrophils # (1.3-7.7) k/uL Lymphocytes # (1.0-4.8) k/uL Monocytes # (0-1.0) k/uL Eosinophils # (0-0.7) k/uL Basophils # (0-0.2) k/uL D-Dimer (<0.60) mg/L FEU Sodium (137-145) mmol/L Potassium (3.5-5.1) mmol/L Chloride (98-107) mmol/L Carbon Dioxide (22-30) mmol/L Anion Gap mmol/L BUN (7-17) mg/dL Creatinine (0.52-1.04) mg/dL Est GFR (CKD-EPI)AfAm (>60 ml/min/1.73 sqM) Est GFR (CKD-EPI)NonAf (>60 ml/min/1.73 sqM) Glucose (74-99) mg/dL Calcium (8.4-10.2) mg/dL Total Bilirubin (0.2-1.3) mg/dL AST (14-36) U/L ALT (4-34) U/L Alkaline Phosphatase (38-126) U/L Troponin I <0.012 (0.000-0.034) ng/mL Total Protein (6.3-8.2) g/dL Albumin (3.5-5.0) g/dL Disposition Clinical Impression: Insomnia, Palpitations Disposition: HOME SELF-CARE Condition: Stable Instructions (If sedation given, give patient instructions): Insomnia (ED) Additional Instructions: Please keep a log of your blood pressures and take this to your primary care o ffice. Attempt to the magnesium nightly to assist with your sleep. You may additionally take 3, 5 or 10 mg melatonin tablets. Follow-up with your primary care within 2 to 4 days for reevaluation of your symptoms and return for any new or worsening symptoms. Use the inhaler as needed up to every 4 hours for shortness of breath Prescriptions: Magnesium Oxide [Mag-Ox] 400 mg PO HS PRN #30 tablet PRN Reason: Insomnia Melatonin 3 mg PO HS PRN #30 tablet PRN Reason: Insomnia Albuterol Inhaler [Ventolin Hfa Inhaler] 2 puff INHALATION Q4HR PRN #8 gm PRN Reason: Shortness Of Breath Is patient prescribed a controlled substance at d/c from ED?: No Referrals: Ca Patterson MD [Primary Care Provider] - 1-2 days Time of Disposition: 19:11
[2024-02-10 19:33] VITALS: BP 120/84; PULSE 78; RESP 16
== END 2024-02-10 19:31 | disposition home or self-care (01) ==
LOC: EC 16:37
DX: G47.00 Insomnia, unspecified (principal); R00.2 Palpitations
CPT/HCPCS: 36415; 71046; 80053; 84484; 85025; 85379; 93005; 99285